=== PATIENT | female | born 1965 | race Caucasian/White ===

== ENCOUNTER 2019-06-05 11:03 | Inpatient (IN) | payer OTHER ==
[2019-06-05] MEDS ORDERED: Sodium Chloride 0.9% 1,000 ML IV ONE (11:13)
--- NOTE | 2019-06-05 11:20 | ED Physician Chart ---
ED Chief Complaint/HPI - Patient Information Date Seen:: 06/05/19 Time Seen:: 11:00 Chief Complaint:: Abdominal Pain History of Present Illness:: onset x one day of intermittent, dull, diffuse, crampy abdominal pain, N/V/D; no report of/pt denies trauma, H/As, S/T, neck pain, cough, C/P, SOB, A/C, fever , chills, or urinary s/s Allergies:: Allergies Allergy/AdvReac Type Severity Reaction Status Date / Time No Known Allergies Allergy Verified 06/05/19 11:15 Historian:: Patient, EMS Review:: Nurse's Note Reviewed, Old Chart Reviewed, EMS run form Reviewed ED Review of Systems - Review of Systems General/Constitutional: No fever, No chills, No weight loss, No weakness, No diaphoresis, No edema, No loss of appetite Skin: No skin lesions, No rash, No bruising Head: No headache, No light-headedness Eyes: No loss of vision, No pain, No diplopia ENT: No earache, No nasal drainage, No sore throat, No tinnitus Neck: No neck pain, No swelling, No thyromegaly, No stiffness, No mass noted Cardio Vascular: No chest pain, No palpitations, No PND, No orthopnea, No edema Pulmonary: No SOB, No cough, No sputum, No wheezing GI: Nausea, Vomiting, Diarrhea, Pain, No melena, No hematochezia, No constipation, No hematemesis G/U: No dysuria, No frequency, No hematuria, No nacturia Art Appraiser: No vaginal discharge, No abnormal vaginal bleed, No contraction Musculoskeletal: No bone or joint pain, No back pain, No muscle pain Endocrine: No polyuria, No polydipsia Psychiatric: No prior psych history, No depression, No anxiety, No suicidal ideation, No homicidal ideation, No auditory hallucination, No visual hallucination Hematopoietic: No bruising, No lymphadenopathy Allergic/Immuno: No urticaria, No angioedema Neurological: No syncope, No focal symptoms, No weakness, No paresthesia, No headache, No seizure, No dizziness, No confusion, No vertigo ED Past Medical History - Past Medical History Obtainable: Yes Past Medical History: HTN, PUD/GERD, Other (Cirrhosis) Family History: HTN Social History: Smoker, Alcohol, No Drug Use, Single Surgical History: Cholecystectomy Psychiatricy History: None Medication: Reviewed Family Medical History - Family Member Mother History Unknown: Yes ED Physical Exam - Physical Examination General/Constitutional: Awake, Well-developed, well-nourished, Alert, No distress, GCS 15, Non-toxic appearing, Ambulatory Head: Atraumatic Eyes: Lids, conjuctiva normal, PERRL, EOMI Skin: Nl inspection, No rash, No skin lesions, No ecchymosis, Well hydrated, No lymphadenopathy ENMT: External ears, nose nl, TM canals nl, Nasal exam nl, Lips, teeth, gums nl , Oropharynx nl, Tonsils nl Neck: Nontender, Full ROM w/o pain, No JVD, No nuchal rigidity, No bruit, No mass, No stridor Respiratory: Nl effort/Exclusion, Clear to Auscultation, No Wheeze/Rhonchi/Rales Cardio Vascular: RRR, No murmur, gallop, rubs, NL S1 S2, Carotid/Femoral/Distal pulses equal bilaterally GI: No tenderness/rebounding/guarding, No organomegaly, No hernia, Normal BS's, Nondistended, No mass/bruits, No McBurney tenderness, Rectum exam nl : No CVA tenderness Extremities: No tenderness or effusion, Full ROM, normal strength in all extremities, No edema, Normal digits & nails Neuro/Psych: Alert/oriented, DTR's symmetric, Normal sensory exam, Normal motor strength, Judgement/insight normal, Mood normal, Normal gait, No focal deficits Misc: Normal back, No paraspinal tenderness ED Labs/Radiology/EKG Results - Lab Results Comments:: Reviewed - Radiology Results Comments:: + Air/Fluid Levels; + Cirrhosis - EKG Interpretations EKG Time:: 11:19 Rate & Rhythm: 73; NSR Comments:: non-specific st-t changes ED Septic Shock - . Is Septic Shock (SBP<90, OR Lactate>4 mmol\L) present?: No ED Reassessment (Disposition) - Reassessment Reassessment Condition:: Improved - Diagnosis Diagnosis:: Abdominal Pain; N/V/D; AGE; Anemia; Leukopenia; Partial SBO; Hypoalbuminemia; Elevated LFTs; Hypokalemia; UTI; Sepsis; Cirrhosis; Substance Abuse - Aftercare/Follow up Instructions Aftercare/Follow-Up Instructions:: Counseled pt regarding lab results/diagnosis & need follow up, Counseled pt & family regarding lab results/diagnosis & need follow up - Patient Disposition Discharge/Transfer:: Acute Care w/in this hosp Accepting Physician:: Dr. Freeman Time Called:: 1300 Time Responded:: 13:00 Admitted to:: Telemetry Spoke to:: Dr. Freeman Admitting Medical Physician:: Dr. Freeman Condition at Disposition:: Stable, Improved
[2019-06-05 11:40] LABS: EOSINOPHILE ABSOLUTE 0.1 Th/cmm (0.1-0.4); HEMATOCRIT 36.5 % (41.0-60); HEMOGLOBIN 11.5 gm/dL (12-16); LYMPHOCYTE ABSOLUTE 0.9 Th/cmm (1.5-3.0); MEAN CORPUSCULAR HEMOGLOBIN 23.6 pg (27.0-31.0); MEAN CORPUSCULAR HGB CONC 31.5 pg (28.0-36.0); MONOCYTE ABSOLUTE 0.6 Th/cmm (0.3-1.0); NEUTROPHILE ABSOLUTE 2.3 Th/cmm (1.8-8.0); PLATELET COUNT 210 Th/cmm (150-400); RED BLOOD COUNT 4.87 Mil/cmm (3.80-5.10); RED CELL DISTRIBUTION WIDTH 17.3 % (11.5-20.0)
[2019-06-05 11:49] LABS: INR 1.18 (0.5-1.4)
[2019-06-05 11:53] LABS: ALB/GLOB RATIO 0.8 (1.0-1.8); ALBUMIN 3.5 gm/dL (3.7-5.3); ALKALINE PHOSPHATASE 147 U/L (34-104); AMYLASE SERUM 55 U/L (29-103); BILIRUBIN,TOTAL 1.8 mg/dL (0.3-1.0); CALCIUM SERUM 9.3 mg/dL (8.6-10.3); CARBON DIOXIDE 25.3 mEq/L (21.0-31.0); CHLORIDE 101 mEq/L (98-107); CHOLESTEROL 94 mg/dL (<200); CREATININE - SERUM 0.6 mg/dL (0.6-1.2); CREATININE KINASE 145 U/L (30-223); GFR AFRICAN-AMERICAN > 60.0 ml/min (>90); GFR NON AFRICAN-AMERICAN > 60.0 ml/min; GLUCOSE 133 mg/dL (70-105); HDL -HIGH DENSITY LIPOPROTEIN 31 mg/dL (23-92); LIPASE 88 U/L (11-82); SGOT 42 U/L (13-39); SGPT/ALT 23 U/L (7-52); SODIUM SERUM 137 mEq/L (136-145); TRIGLYCERIDES 44 mg/dL (<150)
[2019-06-05 12:09] LABS: WHITE BLOOD COUNT 3.9 Th/cmm (4.8-10.8)
[2019-06-05] MEDS ORDERED: IOHEXOL 300mgI/mL 100 ML VIAL ONE (12:38)
[2019-06-05 12:50] LABS: BAND NEUTROPHILE 0 % (0-10); BASOPHIL 0 % (0-3); EOSINOPHIL 1 % (0-5); LYMPHOCYTE 26 % (20-50); MONOCYTE 14 % (2-10); NEUTROPHILS 59 % (40-80)
[2019-06-05 13:15] LABS: BUN - UREA NITROGEN 10 mg/dL (7-25)
[2019-06-05 13:46] LABS: URINE SOURCE CLEAN C
[2019-06-05 13:50] LABS: URINE BILIRUBIN NEGATIVE (NEGATIVE); URINE BLOOD NEGATIVE (NEGATIVE); URINE GLUCOSE (UA) NEGATIVE (NEGATIVE); URINE KETONE NEGATIVE (NEGATIVE); URINE LEUKOCYTE ESTERASE SMALL (NEGATIVE); URINE NITRATE NEGATIVE (NEGATIVE); URINE PROTEIN NEGATIVE (NEGATIVE)
--- NOTE | 2019-06-05 13:50 | Diagnostic Imaging Report ---
CT abdomen and pelvis with intravenous contrast Indication: Abdominal pain, rule out appendicitis Comparison: None, Technique: Axial images were obtained from the lung bases to the bilateral proximal femurs with IV contrast. Coronal reconstructions were made. total DLP: 454, CTDI9.5 FINDINGS: Exam is limited due to motion. Hypoventilatory atelectatic changes of the lung bases are noted. Heterogeneous liver is noted with probable early cirrhotic changes. Subcentimeter low-density focus in the dome of liver is noted to small too characterize. The patient is status post cholecystectomy. The spleen measures 14 cm. No focal lesions. No focal pancreatic or adrenal lesions. There is a 1 cm right renal cyst and additional low-density lesions too small to characterize but suggestive of cysts. Distended urinary bladder is noted. There is a copious stool throughout the course. There is slight diastases of the midline anterior abdominal wall with broad-based mild protrusion of bowel loops. Partially visualized nondilated appendix is noted without evidence of appendicitis. Fluid-filled loops of small bowel are noted with air-fluid levels. No free fluid or free air. Minimal atherosclerosis is noted. Advanced degenerative changes lower lumbar spine is noted. There appears to have been old right pubic bone fracture. IMPRESSION: Limited exam due to motion. Partially visualized nondilated appendix is noted. No evidence of acute appendicitis. Multiple fluid-filled loops of small bowel a few small air-fluid levels. Findings may be due to inflammatory infectious process/enteritis. Distended urinary bladder. Slight diastases of the midline anterior abdominal wall with slight broad-based protrusion of bowel loops. Irregularity and likely early cirrhotic changes of the liver, correlate clinically. Mild splenomegaly. Evidence of prior cholecystectomy. Subcentimeter low-density lesion of the dome of liver too small to characterize. There appears to be have been old right pubic bone fracture. Assessment was limited due to motion.
[2019-06-05 13:55] LABS: URINE CLARITY CLEAR (CLEAR); URINE COLOR YELLOW; URINE MICROSCOPIC INDICATED? YES
[2019-06-05 14:00] LABS: AMPHETAMINE URINE NEGATIVE (NEGATIVE); BARBITURATES URINE NEGATIVE (NEGATIVE); BENZODIAZEPINES QUAL URINE NEGATIVE (NEGATIVE); CANNABINOID THC POSITIVE (NEGATIVE); COCAINE METABOLITE QUAL URINE NEGATIVE (NEGATIVE); METHADONE URINE NEGATIVE (NEGATIVE); METHAMPHETAMINES QUAL URINE NEGATIVE (NEGATIVE); OPIATES (MORPHINE) QUAL. URINE NEGATIVE (NEGATIVE); PHENCYCLIDINE (PCP) URINE NEGATIVE (NEGATIVE); TRICYCLICS (TCA) QUAL. URINE NEGATIVE (NEGATIVE)
[2019-06-05 14:01] LABS: URINE BACTERIA FEW /hpf (NONE SEEN); URINE EPITHELIAL CELLS FEW /lpf (FEW); URINE RBC 0-2 /hpf (0-5)
[2019-06-05 14:24] LABS: POTASSIUM SERUM 2.1 mEq/L (3.5-5.1)
[2019-06-05 14:25] LABS: ANION GAP 12.8 (7.0-16.0)
[2019-06-05] MEDS ORDERED: cefTRIAXone 1 GM in Sodium Chloride 0.9% 50 ML IV ONE (14:27)
[2019-06-05] MEDS ORDERED: Potassium Chloride 20 mEq ER Tab PO ONE ×2 (14:27→14:31)
[2019-06-05] MEDS ORDERED: D5-0.45NS w/20 mEq KCL 1,000 ML IV SCH (16:30)
[2019-06-05] MEDS: D5-0.45NS w/20 mEq KCL 1,000 ML IV SCH (17:05)
[2019-06-05] MEDS: KCL 20mEq/100mL Premix 20 MEQ/100 ML PIGGYBACK IV SCH ×2 (17:07→21:35)
[2019-06-05 19:44] VITALS: BP 122/67
[2019-06-05] MEDS ORDERED: metroNIDAZOLE 500mg/NS 100mL 500 MG/100 ML BAG IV SCH (21:00)
[2019-06-05] MEDS: metroNIDAZOLE 500mg/NS 100mL 500 MG/100 ML BAG IV SCH (21:31)
[2019-06-06] MEDS ORDERED: Haloperidol Lactate 5 mg/mL 1mL Vial IM ONE (01:59)
--- NOTE | 2019-06-06 03:29 | History & Physical ---
ADMIT DATE: 06/05/2019 CHIEF COMPLAINT: Nausea, vomiting for 1 day duration. HISTORY OF PRESENT ILLNESS: The patient is a 53-year-old female with long history of alcohol liver disease, presented to the Emergency Room with intractable nausea, vomiting, evaluated by the ER physician. Initial workup significant for acute gastroenteritis, severe hypokalemia. The patient had 40 mEq of KCl p.o. and 40 mEq IV, admit to the telemetry, started on IV fluid. The patient denies any fever, chills, diarrhea. PAST MEDICAL HISTORY: Significant for chronic liver disease. PAST SURGICAL HISTORY: No recent surgery. ALLERGIES: None. MEDICATIONS: Follow admission reconciliation. SOCIAL HISTORY: Chronic alcoholic, smokes marijuana. FAMILY HISTORY: Noncontributory. REVIEW OF SYSTEMS: RENAL SYSTEM: No history of chronic renal disorder. CARDIOVASCULAR SYSTEM: No coronary artery disease. ENDOCRINE SYSTEM: No diabetes or thyroid problem. GASTROINTESTINAL: She has alcohol liver disease. NEUROLOGICAL SYSTEM: No seizure disorder. SKELETOMUSCULAR SYSTEM: No muscular dystrophy. HEMATOLOGICAL SYSTEM: No bleeding tendencies. RESPIRATORY SYSTEMS: No history of asthma. GENITOURINARY: No dysuria or hematuria. PHYSICAL EXAMINATION: GENERAL: She is awake, alert, oriented. VITAL SIGNS: Temperature is 98.1, heart rate 84, blood pressure 125/84. HEENT: Normocephalic. Pupils reactive to light and accommodation. Sclerae clear. NECK: Supple. Negative for lymphadenopathy, JVD or bruit. CHEST: Bilaterally normal. No rhonchi or wheezing. HEART: S1, S2. No gallop rhythm. ABDOMEN: Soft, bowel sounds positive. EXTREMITIES: No edema. NEUROLOGICAL: She is awake, alert, oriented. No focal motor sensory deficits. Cranial nerves 2-12 is intact. LABORATORY DATA: White blood cell 3.9, hemoglobin 11.5, hematocrit 36.5, platelet is 210. PT 12.2, INR 1.18. Sodium 137, potassium 2.1, BUN 10, creatinine 0.7. ASSESSMENT: 1. Acute gastroenteritis. 2. History of alcohol liver disease. PLAN: The patient is admitted to the hospital under Dr. Freeman's service, IV fluid, clear liquid diet, IV Flagyl, IV Protonix. CBC, CMP for tomorrow. The patient is a full code. JOB# [id number]
[2019-06-06] MEDS: metroNIDAZOLE 500mg/NS 100mL 500 MG/100 ML BAG IV SCH ×3 (05:29→21:03)
[2019-06-06] MEDS: D5-0.45NS w/20 mEq KCL 1,000 ML IV SCH ×2 (05:54→16:25)
[2019-06-06 06:30] LABS: ALB/GLOB RATIO 0.8 (1.0-1.8); ALKALINE PHOSPHATASE 122 U/L (34-104); ANION GAP 10.4 (7.0-16.0); BILIRUBIN,TOTAL 1.4 mg/dL (0.3-1.0); BUN - UREA NITROGEN 9 mg/dL (7-25); CALCIUM SERUM 9.2 mg/dL (8.6-10.3); CARBON DIOXIDE 22.2 mEq/L (21.0-31.0); CHLORIDE 112 mEq/L (98-107); CREATININE - SERUM 0.5 mg/dL (0.6-1.2); GFR AFRICAN-AMERICAN > 60.0 ml/min (>90); GFR NON AFRICAN-AMERICAN > 60.0 ml/min; GLUCOSE 113 mg/dL (70-105); MAGNESIUM 1.7 mg/dL (1.9-2.7); SGOT 34 U/L (13-39); SGPT/ALT 19 U/L (7-52); SODIUM SERUM 142 mEq/L (136-145); TOTAL PROTEIN,SERUM 6.9 gm/dL (6.0-8.3)
[2019-06-06 06:52] LABS: POTASSIUM SERUM 2.6 mEq/L (3.5-5.1)
--- NOTE | 2019-06-06 07:21 | Consultation ---
DATE OF CONSULTATION: 06/06/2019 PSYCHIATRIC CONSULTATION AGE: 53. SEX: Female. PHYSICIAN: Dr. Freeman. MACHINE CLEANER: Dr. Flores. TYPE OF THE REPORT: Psychiatric consult. REASON FOR THE CONSULT: Agitation and heavy drinking. HISTORY OF PRESENT ILLNESS: The patient is a 53-year-old female with history of advanced liver cirrhosis. The patient has been drinking and has been agitated and restless. Earlier prior to my evaluation, the patient was extremely agitated and irritable and the patient had to be sedated and was given emergency dose of Haldol. I was not able to get much information from the patient, but most of the information obtained from the chart. The patient has a long history of drinking, although she has liver cirrhosis yet she continues to drink. She has been restless and in irritable mood when arrived to the hospital. PAST PSYCHIATRIC HISTORY: The patient is not known history of psychiatric issues, but she is currently not on any psychotropic medications. The patient does have a history of alcoholism. PAST MEDICAL HISTORY: Advanced liver cirrhosis. SOCIAL HISTORY: Not clear at that time. The patient seems to be . PRESENTING SYMPTOMS TO THE HOSPITAL: The patient was presented to the hospital with nausea and vomiting for 1 day, which most probably related to her drinking. MENTAL STATUS EXAM: The patient is sedated. I tried to talk to the patient, but difficulty to wake her up from her deep sleep because of her sedation. The patient did not answer question regarding hallucinations or delusions or regarding suicide or homicide at this time because of her sedation. Poor insight and poor judgment ASSESSMENT: PRIMARY DIAGNOSIS: Depressive mood disorder, unspecified. SECONDARY DIAGNOSIS: Alcohol use disorder. TREATMENT PLAN: Monitor the patient's behavior and condition closely. Also, I will give Ativan on a p.r.n. basis. We will monitor her behavior closely. We will reevaluate when more alert. Thanks to Dr. Freeman and we will follow with you. [facility]# [id number]
[2019-06-06] MEDS: Lactulose 10 Gm/15 mL 30mL UDC PO SCH ×4 (09:06→21:03)
[2019-06-06] MEDS ORDERED: Potassium Chloride 20 mEq ER Tab PO ONE ×2 (11:23→17:10)
--- NOTE | 2019-06-06 17:34 | Internal Medicine Prog Note ---
Internal Medicine Subjective - Subjective Service Date: 06/06/19 Patient seen and examined:: with staff (SHE FEELS BETTER) Patient is:: awake, verbal, in bed, talking, confused Per staff patient has:: no adverse event Internal Medicine Objective - Results Result Diagrams: 06/05/19 11:30 06/06/19 16:00 Recent Labs: Laboratory Last Values WBC 3.9 Th/cmm (4.8-10.8) L 06/05/19 11:30 RBC 4.87 Mil/cmm (3.80-5.10) 06/05/19 11:30 Hgb 11.5 gm/dL (12-16) L 06/05/19 11:30 Hct 36.5 % (41.0-60) L 06/05/19 11:30 MCV 75.0 fl (81-100) L 06/05/19 11:30 MCH 23.6 pg (27.0-31.0) L 06/05/19 11:30 MCHC Differential 31.5 pg (28.0-36.0) 06/05/19 11:30 RDW 17.3 % (11.5-20.0) 06/05/19 11:30 Plt Count 210 Th/cmm (150-400) 06/05/19 11:30 MPV 9.4 fl 06/05/19 11:30 Add Manual Diff YES 06/05/19 11:30 Band Neutrophils % 0 % (0-10) 06/05/19 11:30 Neutrophils (Manual) 59 % (40-80) 06/05/19 11:30 Lymphocytes 26 % (20-50) 06/05/19 11:30 Monocytes 14 % (2-10) H 06/05/19 11:30 Eosinophils 1 % (0-5) 06/05/19 11:30 Basophils 0 % (0-3) 06/05/19 11:30 Microcytosis 2+ 06/05/19 11:30 PT 12.2 SECONDS (9.5-11.5) H 06/05/19 11:30 INR 1.18 (0.5-1.4) 06/05/19 11:30 Sodium 142 mEq/L (136-145) 06/06/19 05:20 Potassium 3.3 mEq/L (3.5-5.1) L 06/06/19 16:00 Chloride 112 mEq/L (98-107) H 06/06/19 05:20 Carbon Dioxide 22.2 mEq/L (21.0-31.0) 06/06/19 05:20 Anion Gap 10.4 (7.0-16.0) 06/06/19 05:20 BUN 9 mg/dL (7-25) 06/06/19 05:20 Creatinine 0.5 mg/dL (0.6-1.2) L 06/06/19 05:20 Est GFR ( Amer) > 60.0 ml/min (>90) 06/06/19 05:20 Est GFR (Non-Af Amer) > 60.0 ml/min 06/06/19 05:20 BUN/Creatinine Ratio 18.0 06/06/19 05:20 Glucose 113 mg/dL (70-105) H 06/06/19 05:20 Whole Bld Lactic Acid 1.50 mmol/L (0.60-1.99) 06/05/19 11:30 Calcium 9.2 mg/dL (8.6-10.3) 06/06/19 05:20 Magnesium 1.7 mg/dL (1.9-2.7) L 06/06/19 05:20 Total Bilirubin 1.4 mg/dL (0.3-1.0) H 06/06/19 05:20 AST 34 U/L (13-39) 06/06/19 05:20 ALT 19 U/L (7-52) 06/06/19 05:20 Alkaline Phosphatase 122 U/L (34-104) H 06/06/19 05:20 Ammonia 192 umol/L (16-53) H 06/06/19 05:20 Creatine Kinase 145 U/L (30-223) 06/05/19 11:30 Troponin I < 0.01 ng/mL (0.01-0.05) L 06/05/19 11:30 B-Natriuretic Peptide 28.3 pg/mL (5.0-100.0) 06/05/19 11:30 Total Protein 6.9 gm/dL (6.0-8.3) 06/06/19 05:20 Albumin 3.0 gm/dL (3.7-5.3) L 06/06/19 05:20 Globulin 3.9 gm/dL 06/06/19 05:20 Albumin/Globulin Ratio 0.8 (1.0-1.8) L 06/06/19 05:20 Triglycerides 44 mg/dL (<150) 06/05/19 11:30 Cholesterol 94 mg/dL (<200) 06/05/19 11:30 LDL Cholesterol Direct 64 mg/dL (75-193) L 06/05/19 11:30 HDL Cholesterol 31 mg/dL (23-92) 06/05/19 11:30 Amylase 55 U/L (29-103) 06/05/19 11:30 Lipase 88 U/L (11-82) H 06/05/19 11:30 Serum , Qual NEGATIVE (NEGATIVE) 06/05/19 11:30 Urine Source CLEAN C 06/05/19 13:30 Urine Color YELLOW 06/05/19 13:30 Urine Clarity CLEAR (CLEAR) 06/05/19 13:30 Urine pH 8.0 (4.6 - 8.0) 06/05/19 13:30 Ur Specific Pedro <= 1.005 (1.005-1.030) 06/05/19 13:30 Urine Protein NEGATIVE mg/dL (NEGATIVE) 06/05/19 13:30 Urine Glucose (UA) NEGATIVE mg/dL (NEGATIVE) 06/05/19 13:30 Urine Ketones NEGATIVE mg/dL (NEGATIVE) 06/05/19 13:30 Urine Blood NEGATIVE (NEGATIVE) 06/05/19 13:30 Urine Nitrate NEGATIVE (NEGATIVE) 06/05/19 13:30 Urine Bilirubin NEGATIVE (NEGATIVE) 06/05/19 13:30 Urine Urobilinogen 1.0 E.U./dL (0.2 - 1.0) 06/05/19 13:30 Ur Leukocyte Esterase SMALL (NEGATIVE) H 06/05/19 13:30 Urine RBC 0-2 /hpf (0-5) 06/05/19 13:30 Urine WBC 2-5 /hpf (0-5) 06/05/19 13:30 Ur Epithelial Cells FEW /lpf (FEW) 06/05/19 13:30 Urine Bacteria FEW /hpf (NONE SEEN) 06/05/19 13:30 Urine Opiates Screen NEGATIVE (NEGATIVE) 06/05/19 13:30 Urine Methadone Screen NEGATIVE (NEGATIVE) 06/05/19 13:30 Ur Barbiturates Screen NEGATIVE (NEGATIVE) 06/05/19 13:30 Ur Tricyclics Screen NEGATIVE (NEGATIVE) 06/05/19 13:30 Ur Phencyclidine Scrn NEGATIVE (NEGATIVE) 06/05/19 13:30 Amphetamines Screen NEGATIVE (NEGATIVE) 06/05/19 13:30 U Methamphetamines Scrn NEGATIVE (NEGATIVE) 06/05/19 13:30 U Benzodiazepines Scrn NEGATIVE (NEGATIVE) 06/05/19 13:30 U Cocaine Metab Screen NEGATIVE (NEGATIVE) 06/05/19 13:30 U Cannabinoids Screen POSITIVE (NEGATIVE) H 06/05/19 13:30 Ethyl Alcohol < 10 mg/dL (0-10) 06/05/19 11:30 - Physical Exam Vitals and I&O: Vital Signs Temp 98.8 F 06/06/19 16:00 Pulse 87 06/06/19 16:00 Resp 20 06/06/19 16:00 BP 127/75 06/06/19 16:00 Pulse Ox 97 06/06/19 16:00 Intake & Output 06/05/19 06/06/19 06/06/19 18:59 06:59 18:59 Intake Total 200 2500 1100 Balance 200 2500 1100 Weight (lbs) 72.575 kg 72.575 kg 72.575 kg Intake: Intake, IV Amount 1300 1100 D5-0.45NS w/20 mEq KCL 1, 1000 1000 000 ml @ 100 mls/hr IV . Q10H JACE Rx#:[id number] KCL 20mEq/100mL Premix 20 100 meq In 100 ml @ 50 mls/ hr IV Q2H JACE Rx#: [id number] metroNIDAZOLE 500mg/NS 200 100 100mL 500 mg In 100 ml @ 100 mls/hr IV Q8H JACE Rx# :[id number] Oral 200 1200 Other: # Voids 1 5 # Bowel Movements 2 Stool Characteristics Soft Soft Formed Formed Weight Source Bedscale Patient stated Patient stated Active Medications: Current Medications Potassium Chloride/Dextrose/Sod Cl (D5-0.45ns W/20 Meq Kcl) 1,000 mls @ 100 mls /hr IV .Q10H JACE Stop: 08/04/19 16:29 Last Admin: 06/06/19 16:25 Dose: 100 mls/hr Metronidazole (Flagyl) 500 mg in 100 mls @ 100 mls/hr IV Q8H JACE Stop: 08/04/19 20:59 Last Infusion: 06/06/19 13:55 Dose: Infused Lactulose (Cephulac) 15 gm PO QID JACE Stop: 08/05/19 08:59 Last Admin: 06/06/19 16:23 Dose: Not Given Lorazepam (Ativan) 1 mg PO Q4HR PRN; Protocol PRN Reason: Anxiety Stop: 08/05/19 06:31 Metoprolol Tartrate (Lopressor) 12.5 mg PO DAILY JACE Stop: 08/05/19 08:59 Last Admin: 06/06/19 09:07 Dose: Not Given Mupirocin (Bactroban Oint) 1 appl NS BID JACE Stop: 06/11/19 09:01 Pantoprazole Sodium (Protonix) 40 mg IVP DAILY JACE Stop: 08/05/19 08:59 Last Admin: 06/06/19 09:02 Dose: 40 mg Potassium Chloride (Klor-Con) 40 meq PO X1 ONE Stop: 06/06/19 17:11 Spironolactone (Aldactone) 100 mg PO DAILY JACE Stop: 08/05/19 08:59 Last Admin: 06/06/19 09:06 Dose: Not Given General: alert HEENT: NC/AT, PERRLA, EOMI, anicteric sclerae, throat clear Neck: Supple, No JVD, No thyromegaly, +2 carotid pulse wo bruit, No LAD Cardiovascular: RRR, Normal S1, Normal S2, without murmur Abdomen: non-tender, non-distended Extremities: clear Neurological: no change Internal Medicine Assmt/Plan - Assessment Assessment: 1.ACUTE GASTROENTRITIS. 2.ALCOHOL LIVER DISEASE. 3.PSYCHOSIS. 4.ELECTROLYTE IMBALANCE. - Plan Plan: CONTINUE ON CURRENT MEDICATION AND DIET. Nutritional Asmnt/Malnutr-PDOC - Dietary Evaluation Malnutrition Findings (Please click <Entered> for more info): Nutritional Asmnt/Malnutrition Start: 06/06/19 14: 17 Text: Status: Complete Freq: Protocol: Document 06/06/19 14:17 YUMI (Rec: 06/06/19 14:23 [email or web address]) Nutritional Asmnt/Malnutrition Patient General Information Nutritional Screening High Risk Diagnosis Gastroenteritis Pertinent Medical Hx/Surgical Hx HTN, PUD/GERD, Cirrhosis, Alcohol liver disease, Cholecystectomy Subjective Information Pt is a 53-year-old female admitted on 06/05 c/o intermittent, dull, diffuse, crampy, abdominal pain, N/V/D x 1 day. Pt PO intake 75% dinner yesterday 06/05 and 0% breakfast today per Meal/ Nutrition Activity Record. Per RN Asha, N/V/Abdominal Pain improved. Spoke to ZINA Neves, Pt slept through breakfast but pt ate 25% lunch today. Will continue monitor on PO intake to nutrition needs. HT: 53 WT: 160 LB (72.73 kg) ADJ BW: 60.5 kg BMI: 28.34 (Overweight) GI: WNL, Soft, Large BM: 06/06 x 2 I/O: 2600/Not Noted Skin: WNL, [place], Intact Iftikhar: 22 Diet Order: Clear liquid Estimated Energy Needs: ( Overweight, ADJ BW) 1438-1358 kcals (20-25 kcals/ kg) 48-54 g Pro (0.8-0.9 g/kg) 9065-6640 ml (25-30 ml/kg) Current Diet Order/ Nutrition Support Clear liquid Pertinent Medications Lopressor, Protonix, D5-0.4ns w/20 Meq Kcl 1000mls @100mls/ hr IV Q10H Pertinent Labs 06/06: [place]ass 2.6, Cl 112, BUN/ Cr 9/0.5, Glucose 113, Mg 1.7, Alb 3.0 06/05: Hgb/Hct 11.5/36.5 Nutritional Hx/Data Height 1.6 m Height (Calculated Centimeters) 160.0 Current Weight (lbs) 72.575 kg Weight (Calculated Kilograms) 72.6 Weight (Calculated Grams) 46694.8 [place] Body Weight 115lb (52.4kg) % [place] Body Weight 139 Body Mass Index (BMI) 28.3 Weight Status Overweight GI Symptoms GI Symptoms Nausea Vomitting Last BM 06/06 x 2 Skin Integrity/Comment: WNL, [place], Intact Iftikhar: 22 Current %PO Poor (25-49%) Estimated Nutritional Goals BEE in Kcals: Adj wt of IBW Calories/Kcals/Kg 20-25 Kcals Calculated 8620-1660 Protein: Adj wt of IBW Protein g/k.8-0.9 Protein Calculated 48-54 Fluid: ml 7469-0068 ml (25-30 ml/kg) Nutritional Problem 2. Problem Problem Inadequate energy and protein intake Etiology r/t Gastroenteritis Signs/Symptoms: aeb clear liquid diet 1. Problem Problem Altered nutrition related labs Etiology r/t medical condition Signs/Symptoms: aeb lab result [place]ass 2.6, Cl 112, BUN/Cr 9/0.5, Glucose 113 , Mg 1.7, Alb 3.0 Intervention/Recommendation Comments 1. Continue with Clear liquid diet as ordered. 2. RN to encourage PO intake. Expected Outcomes/Goals Expected Outcomes/Goals 1. PO intake to meet 75% of nutritional needs. 2. Monitor PO intake, wt, skin integrity, and nutrition related labs to trend WNL. 3. F/U as high risk in 2-3 days, 06/08-06/09
--- NOTE | 2019-06-06 20:17 | Consultation ---
DATE OF CONSULTATION: 06/06/2019 INPATIENT GASTROINTESTINAL CONSULTATION CONSULTING PHYSICIAN: Dr. Freeman. REASON FOR CONSULTATION: Liver cirrhosis, gastroenteritis, nausea and vomiting. HISTORY OF PRESENT ILLNESS: The patient is a 53-year-old female with past medical history significant for alcoholic-related liver cirrhosis, continued alcoholism who was admitted to the hospital with nausea and vomiting for one day. Apparently, the patient called 911 as she was profusely vomiting at home and was brought into this Emergency Room for evaluation. At this point, she is unable to give me a history. She does not want to talk to me at all and rather sleep. However, as per the nurses and the chart review, she was drinking heavily, mostly vodka up to the point where she started having nausea and vomiting yesterday. She has a long history of alcoholism and a past medical history with liver cirrhosis, although it is unknown if she is decompensated. Overnight, she has not had any further nausea and vomiting, but has been sedated with pain medication and this is not really willing to answer any other questions. PAST MEDICAL HISTORY: Liver cirrhosis, alcoholism. PAST SURGICAL HISTORY: Unknown. FAMILY HISTORY: Noncontributory. SOCIAL HISTORY: The patient is a heavy alcohol drinker including up to this point. She also uses marijuana as evidenced by her urine tox. No history of other illicit drugs. ALLERGIES: No known drug allergies. REVIEW OF SYSTEMS: Not possible given the patient is unable to participate in the interview. CURRENT MEDICATIONS: Include lactulose, lorazepam, Lopressor, Flagyl, Protonix, spironolactone. PHYSICAL EXAMINATION: VITAL SIGNS: The blood pressure is 97/48, pulse 82 beats per minute, respiratory rate of 17, temperature 98.8, oxygenation 97%. GENERAL: The patient is lying on her side. She is alert and oriented x 2. She does not appear to be in acute distress. HEENT: Normocephalic, atraumatic appearing head. Pupils are equal and reactive. Extraocular muscles appear to be intact. There are dry mucous membranes. NECK: Supple. No JVD or thyromegaly. CHEST: Clear to auscultation bilaterally. CARDIOVASCULAR: S1, S2 are present, regular rate and rhythm. ABDOMEN: Soft. There is mild distention. No guarding, no rebound. No fluid distention. EXTREMITIES: 1+ pitting edema bilaterally. Pulses are not present. SKIN: There is no jaundice. There are multiple tattoos. LABORATORY DATA: White blood cell count 3.9, hemoglobin is 11.5, platelet count 210. The INR is 1.18. Sodium is 142. The BUN is 9, creatinine 0.5. The total bilirubin is 1.4, AST is 34, ALT is 19. The ammonia level is 192, lipase 88. Tox screen shows positive for cannabinoid. CT imaging and CT scan was done. This shows cirrhotic changes of the liver. There are also multiple fluid filled loops of small bowel, possible enteritis, subcentimeter low density lesion of the liver dome too small to characterize and old right pubic fractures noted. IMPRESSION: This is a 53-year-old female with history of ongoing alcoholism and liver cirrhosis, who was admitted to the hospital with nausea and vomiting. 1. Nausea and vomiting. 2. Liver cirrhosis. 3. Ongoing alcoholism. 4. Elevated liver function tests. DISCUSSION: This patient continues to drink alcohol and likely presents with alcoholic hepatitis as well as a possible infectious enteritis syndrome, she is no longer having nausea and vomiting. Thus, I think this is going to be able to be managed conservatively with antibiotics and supportive care. In terms of her liver cirrhosis, this will likely continue to become worse if she continues to drink. It is unknown how she is decompensated at this point, although her ammonia level is certainly elevated that she may have an element of hepatic encephalopathy. The CT scan shows a subcentimeter density in the liver and this should be followed with ultrasound in a few months, although I doubt the patient has good followup or is willing to have a good followup given her alcoholism. RECOMMENDATIONS: 1. Supportive care. 2. Continue to advance diet as tolerated. 3. The patient should really try to stop drinking. This is the most important thing she can do for herself. 4. Recommend ultrasound in 3 months' time to look at the density in the liver to ensure stability. 5. Lactulose is already ordered given the ammonia level is elevated. This should be continued as an outpatient as well. 6. There is no ascites on the CT scan. Thus I do not think a paracentesis is needed. She is on Aldactone, which is presumably an outpatient medication. She is not on any Lasix, which is likely due to the fact that her potassium is low. I will continue to follow the patient. Thank you for allowing me to participate in her care. Please call with any questions. JOB# [id number]
[2019-06-07] MEDS: D5-0.45NS w/20 mEq KCL 1,000 ML IV SCH ×2 (02:42→14:15)
[2019-06-07] MEDS: metroNIDAZOLE 500mg/NS 100mL 500 MG/100 ML BAG IV SCH ×2 (04:25→12:01)
[2019-06-07 05:52] LABS: ALB/GLOB RATIO 0.7 (1.0-1.8); ALBUMIN 2.7 gm/dL (3.7-5.3); ALKALINE PHOSPHATASE 106 U/L (34-104); ANION GAP 10.3 (7.0-16.0); BILIRUBIN,TOTAL 1.4 mg/dL (0.3-1.0); BUN - UREA NITROGEN 7 mg/dL (7-25); CARBON DIOXIDE 16.9 mEq/L (21.0-31.0); CHLORIDE 117 mEq/L (98-107); CREATININE - SERUM 0.6 mg/dL (0.6-1.2); GFR AFRICAN-AMERICAN > 60.0 ml/min (>90); GFR NON AFRICAN-AMERICAN > 60.0 ml/min; GLUCOSE 104 mg/dL (70-105); POTASSIUM SERUM 3.2 mEq/L (3.5-5.1); SGOT 33 U/L (13-39); SGPT/ALT 17 U/L (7-52); SODIUM SERUM 141 mEq/L (136-145); TOTAL PROTEIN,SERUM 6.4 gm/dL (6.0-8.3)
[2019-06-07] MEDS: Lactulose 10 Gm/15 mL 30mL UDC PO SCH ×3 (08:11→16:32)
--- NOTE | 2019-06-07 08:12 | GI Progress Note ---
Subjective - Review of Systems Service Date: 06/07/19 Subjective: Feeling better, no further vomiting GI OBJECTIVE - Results Result Diagrams: 06/05/19 11:30 06/07/19 05:00 Recent Labs: Laboratory Last Values WBC 3.9 Th/cmm (4.8-10.8) L 06/05/19 11:30 RBC 4.87 Mil/cmm (3.80-5.10) 06/05/19 11:30 Hgb 11.5 gm/dL (12-16) L 06/05/19 11:30 Hct 36.5 % (41.0-60) L 06/05/19 11:30 MCV 75.0 fl (81-100) L 06/05/19 11:30 MCH 23.6 pg (27.0-31.0) L 06/05/19 11:30 MCHC Differential 31.5 pg (28.0-36.0) 06/05/19 11:30 RDW 17.3 % (11.5-20.0) 06/05/19 11:30 Plt Count 210 Th/cmm (150-400) 06/05/19 11:30 MPV 9.4 fl 06/05/19 11:30 Add Manual Diff YES 06/05/19 11:30 Band Neutrophils % 0 % (0-10) 06/05/19 11:30 Neutrophils (Manual) 59 % (40-80) 06/05/19 11:30 Lymphocytes 26 % (20-50) 06/05/19 11:30 Monocytes 14 % (2-10) H 06/05/19 11:30 Eosinophils 1 % (0-5) 06/05/19 11:30 Basophils 0 % (0-3) 06/05/19 11:30 Microcytosis 2+ 06/05/19 11:30 PT 12.2 SECONDS (9.5-11.5) H 06/05/19 11:30 INR 1.18 (0.5-1.4) 06/05/19 11:30 Sodium 141 mEq/L (136-145) 06/07/19 05:00 Potassium 3.2 mEq/L (3.5-5.1) L 06/07/19 05:00 Chloride 117 mEq/L (98-107) H 06/07/19 05:00 Carbon Dioxide 16.9 mEq/L (21.0-31.0) L 06/07/19 05:00 Anion Gap 10.3 (7.0-16.0) 06/07/19 05:00 BUN 7 mg/dL (7-25) 06/07/19 05:00 Creatinine 0.6 mg/dL (0.6-1.2) 06/07/19 05:00 Est GFR ( Amer) > 60.0 ml/min (>90) 06/07/19 05:00 Est GFR (Non-Af Amer) > 60.0 ml/min 06/07/19 05:00 BUN/Creatinine Ratio 11.7 06/07/19 05:00 Glucose 104 mg/dL (70-105) 06/07/19 05:00 Whole Bld Lactic Acid 1.50 mmol/L (0.60-1.99) 06/05/19 11:30 Calcium 9.0 mg/dL (8.6-10.3) 06/07/19 05:00 Magnesium 1.7 mg/dL (1.9-2.7) L 06/06/19 05:20 Total Bilirubin 1.4 mg/dL (0.3-1.0) H 06/07/19 05:00 AST 33 U/L (13-39) 06/07/19 05:00 ALT 17 U/L (7-52) 06/07/19 05:00 Alkaline Phosphatase 106 U/L (34-104) H 06/07/19 05:00 Ammonia 192 umol/L (16-53) H 06/06/19 05:20 Creatine Kinase 145 U/L (30-223) 06/05/19 11:30 Troponin I < 0.01 ng/mL (0.01-0.05) L 06/05/19 11:30 B-Natriuretic Peptide 28.3 pg/mL (5.0-100.0) 06/05/19 11:30 Total Protein 6.4 gm/dL (6.0-8.3) 06/07/19 05:00 Albumin 2.7 gm/dL (3.7-5.3) L 06/07/19 05:00 Globulin 3.7 gm/dL 06/07/19 05:00 Albumin/Globulin Ratio 0.7 (1.0-1.8) L 06/07/19 05:00 Triglycerides 44 mg/dL (<150) 06/05/19 11:30 Cholesterol 94 mg/dL (<200) 06/05/19 11:30 LDL Cholesterol Direct 64 mg/dL (75-193) L 06/05/19 11:30 HDL Cholesterol 31 mg/dL (23-92) 06/05/19 11:30 Amylase 55 U/L (29-103) 06/05/19 11:30 Lipase 88 U/L (11-82) H 06/05/19 11:30 Serum , Qual NEGATIVE (NEGATIVE) 06/05/19 11:30 Urine Source CLEAN C 06/05/19 13:30 Urine Color YELLOW 06/05/19 13:30 Urine Clarity CLEAR (CLEAR) 06/05/19 13:30 Urine pH 8.0 (4.6 - 8.0) 06/05/19 13:30 Ur Specific [place] <= 1.005 (1.005-1.030) 06/05/19 13:30 Urine Protein NEGATIVE mg/dL (NEGATIVE) 06/05/19 13:30 Urine Glucose (UA) NEGATIVE mg/dL (NEGATIVE) 06/05/19 13:30 Urine Ketones NEGATIVE mg/dL (NEGATIVE) 06/05/19 13:30 Urine Blood NEGATIVE (NEGATIVE) 06/05/19 13:30 Urine Nitrate NEGATIVE (NEGATIVE) 06/05/19 13:30 Urine Bilirubin NEGATIVE (NEGATIVE) 06/05/19 13:30 Urine Urobilinogen 1.0 E.U./dL (0.2 - 1.0) 06/05/19 13:30 Ur Leukocyte Esterase SMALL (NEGATIVE) H 06/05/19 13:30 Urine RBC 0-2 /hpf (0-5) 06/05/19 13:30 Urine WBC 2-5 /hpf (0-5) 06/05/19 13:30 Ur Epithelial Cells FEW /lpf (FEW) 06/05/19 13:30 Urine Bacteria FEW /hpf (NONE SEEN) 06/05/19 13:30 Urine Opiates Screen NEGATIVE (NEGATIVE) 06/05/19 13:30 Urine Methadone Screen NEGATIVE (NEGATIVE) 06/05/19 13:30 Ur Barbiturates Screen NEGATIVE (NEGATIVE) 06/05/19 13:30 Ur Tricyclics Screen NEGATIVE (NEGATIVE) 06/05/19 13:30 Ur Phencyclidine Scrn NEGATIVE (NEGATIVE) 06/05/19 13:30 Amphetamines Screen NEGATIVE (NEGATIVE) 06/05/19 13:30 U Methamphetamines Scrn NEGATIVE (NEGATIVE) 06/05/19 13:30 U Benzodiazepines Scrn NEGATIVE (NEGATIVE) 06/05/19 13:30 U Cocaine Metab Screen NEGATIVE (NEGATIVE) 06/05/19 13:30 U Cannabinoids Screen POSITIVE (NEGATIVE) H 06/05/19 13:30 Ethyl Alcohol < 10 mg/dL (0-10) 06/05/19 11:30 - Physical Exam Vitals and I&O: Vital Signs Temp 99.3 F 06/07/19 04:00 Pulse 93 06/07/19 04:00 Resp 20 06/07/19 04:00 BP 102/54 06/07/19 04:00 Pulse Ox 97 06/07/19 04:00 Intake & Output 06/06/19 06/07/19 06/07/19 18:59 06:59 18:59 Intake Total 1100 2160 Output Total 3 Balance 1097 2160 Weight (lbs) 72.575 kg 75.478 kg Intake: Intake, IV Amount 1100 1200 D5-0.45NS w/20 mEq KCL 1, 1000 1000 000 ml @ 100 mls/hr IV . Q10H [facility] Rx#:[id number] metroNIDAZOLE 500mg/NS 100 200 100mL 500 mg In 100 ml @ 100 mls/hr IV Q8H [facility] Rx# :[id number] Oral 960 Output: Urine 3 Other: # Voids 5 # Bowel Movements 1 0 Stool Characteristics Soft Soft Formed Formed Weight Source Bedscale Bedscale Active Medications: Current Medications Potassium Chloride/Dextrose/Sod Cl (D5-0.45ns W/20 Meq Kcl) 1,000 mls @ 100 mls /hr IV .Q10H [facility] Stop: 08/04/19 16:29 Last Admin: 06/07/19 02:42 Dose: 100 mls/hr Metronidazole (Flagyl) 500 mg in 100 mls @ 100 mls/hr IV Q8H [facility] Stop: 08/04/19 20:59 Last Infusion: 06/07/19 05:25 Dose: Infused Lactulose (Cephulac) 15 gm PO QID [facility] Stop: 08/05/19 08:59 Last Admin: 06/06/19 21:03 Dose: 15 gm Lorazepam (Ativan) 1 mg PO Q4HR PRN; Protocol PRN Reason: Anxiety Stop: 08/05/19 06:31 Metoprolol Tartrate (Lopressor) 12.5 mg PO DAILY [facility] Stop: 08/05/19 08:59 Last Admin: 06/06/19 09:07 Dose: Not Given Mupirocin (Bactroban Oint) 1 appl NS BID [facility] Stop: 06/11/19 09:01 Last Admin: 06/06/19 18:56 Dose: 1 appl Pantoprazole Sodium (Protonix) 40 mg IVP DAILY [facility] Stop: 08/05/19 08:59 Last Admin: 06/06/19 09:02 Dose: 40 mg Spironolactone (Aldactone) 100 mg PO DAILY [facility] Stop: 08/05/19 08:59 Last Admin: 06/06/19 09:06 Dose: Not Given General: Alert, Oriented x3 HEENT: Atraumatic Cardiovascular: Regular rate Abdomen: Bowel sounds, Soft, Hepatomegaly, no Tender, no Splenomegaly, no Distended, no Rebound, no Mass Assessment/Plan - Problem List Patient Problems: All Active Problems GENERALIZED ABDOMINAL PAIN WITH N/V (Acute) - Assessment Assessment: # Alcoholism # Cirrhosis, MELD 10 # Nausea/vomiting Initial vomiting may be related to a viral enteritis, although alcoholic hepatitis or alcohol toxicity could certainly be responsible. MELD score is 10. US shows sub cm density in the liver, which should be re-imaged in 3 months Plan: - stop EtOH - US due in 3 months to look at the small spot there, ensure no growth - trend LFTs - advance diet, low salt - supportive measures - EGD due as outpt for variceal screening
[2019-06-07] MEDS: KCL 20mEq/100mL Premix 20 MEQ/100 ML PIGGYBACK IV SCH ×2 (15:08→16:00)
--- NOTE | 2019-06-07 22:56 | Discharge Summary ---
DATE OF DISCHARGE: 06/07/2019 FINAL DIAGNOSES: 1. Acute gastroenteritis. 2. Alcohol liver disease. 3. Electrolyte imbalance. 4. Psychosis. REVIEW OF HISTORY: The patient is a 53-year-old female with long history of alcohol liver disease, presented to the Emergency Room with nausea, vomiting and confusion. Initial workup significant for acute gastroenteritis ____, psychosis, admitted to the hospital, started IV fluid, antibiotic. COURSE OF HOSPITALIZATION: On second day of hospitalization, the patient was feeling better, still confused. No chest pain, no shortness of breath, no nausea, no vomiting. PHYSICAL EXAMINATION: VITAL SIGNS: On 06/07/2019, the patient is afebrile, temperature 98.1, heart rate 79, blood pressure 114/69. CHEST: Clear to auscultation. ABDOMEN: Soft, bowel sounds positive. LABORATORY DATA: Sodium 141, potassium 3.2, BUN is 7, creatinine 0.6. DISPOSITION: The patient was discharged home. Follow up with primary physician next week. CONDITION ON DISCHARGE: Stable. MEDICATIONS: Follow discharge reconciliation. [facility]# [id number]
== END 2019-06-07 17:03 | disposition home or self-care (01) | DRG 249 ==
LOC: ER 11:03 → OBSVTOIN 16:04 → TELE 16:04
PROVIDERS: ADMIT Family Medicine; ATTEND Family Medicine
DX: K52.9 Noninfective gastroenteritis and colitis, unspecified (principal); K56.600 Partial intestinal obstruction, unspecified as to cause; E87.8 Other disorders of electrolyte and fluid balance, not elsewhere classified; K70.9 Alcoholic liver disease, unspecified; N39.0 Urinary tract infection, site not specified; D64.9 Anemia, unspecified; K74.60 Unspecified cirrhosis of liver; E87.6 Hypokalemia; F10.20 Alcohol dependence, uncomplicated; F32.9 Major depressive disorder, single episode, unspecified; F29 Unspecified psychosis not due to a substance or known physiological condition
CPT/HCPCS: 36415-UA; 80053-TC; 80061-TC; 80307; 80320-TC; 81001-TC; 82140-TC; 82150-TC; 82550-TC; 83605; 83690-TC; 83735-TC; 83880-TC; 84132-TC; 84484-TC; 84703-TC; 85007-TC; 85025-TC; 85610-TC; 90784; 90799; 93005; 94760; C9113; J0696; J1630; J3480; J7030; J7040; Q9967